=== PATIENT | male | born 1965 | race Caucasian/White ===

== ENCOUNTER 2020-02-06 14:09 | Emergency (ER) | payer OTHER, MEDICARE ==
[~2020-02-06] VITALS: Ht 190.5 cm; Wt 104.3 kg
[2020-02-06] MEDS ORDERED: ROBAXIN-750750 MG PO ×2 (16:17→18:48)
[2020-02-06] MEDS ORDERED: PREDNISONE20 M1 PO ×2 (16:17→18:48)
== END 2020-02-06 18:34 | disposition home or self-care (01) ==
LOC: ED 14:09
DX: M54.41 Lumbago with sciatica, right side (principal); Z88.8 Allergy status to other drugs, medicaments and biological substances

== ENCOUNTER 2023-07-07 15:19 | Emergency (ER) | payer OTHER, MEDICARE ==
[~2023-07-07 15:19] MED LIST: PREDNISONE20 M1 PO; ROBAXIN-750750 MG PO
[2023-07-07 16:36] LABS: BASO % 0.4 % (0.0-1.0); EOS % 0.4 % (1.0-4.0); HEMATOCRIT 45.1 % (42.0-52.0); LYMPH # 0.5 10*3/uL (1.3-4.4); LYMPH % 8.5 % (27.0-41.0); MEAN CELL VOLUME 89.8 fl (80.0-94.0); MEAN CORPUSCULAR HGB 31.3 pg (27.0-31.0); MEAN CORPUSCULAR HGB CONC 34.8 g/dl (33.0-37.0); MEAN PLATELET VOLUME 10.3 fl (9.6-12.3); MONO # 0.4 10*3/uL (0.1-1.0); MONO % 6.6 % (3.0-9.0); NEUT # 4.4 10*3/uL (2.3-7.9); NEUT % 83.9 % (47.0-73.0); PLATELET COUNT AUTOMATED 230 10*3/uL (130-400); RED BLOOD COUNT 5.02 10*6/uL (4.50-5.90); RED CELL DISTRI WIDTH 12.8 % (0-14.5); WHITE BLOOD COUNT 5.3 10*3/uL (4.8-10.8)
[2023-07-07 17:16] LABS: ALKALINE PHOSPHATASE 85 U/L (46-116); BUN 14 mg/dl (9-23); CHLORIDE 112 mmol/L (98-107); POTASSIUM 3.6 mmol/L (3.4-5.1); SGPT/ALT 21 U/L (5-49); TOTAL PROTEIN 5.9 gm/dL (6.0-8.0)
[2023-07-07] MEDS ORDERED: ONDANSETRON4 MG SL (18:40)
== END 2023-07-07 18:49 | disposition home or self-care (01) ==
LOC: ED 15:19
PROVIDERS: Nurse Practitioner
DX: A08.4 Viral intestinal infection, unspecified (principal); R11.0 Nausea; Z88.8 Allergy status to other drugs, medicaments and biological substances